=== PATIENT | female | born 1970 | race Two or more races ===

== ENCOUNTER 2021-03-02 11:26 | Emergency (ER) | payer MEDICAID, OTHER ==
[~2021-03-02] VITALS: Ht 162.6 cm; Wt 59.0 kg
[2021-03-02] MEDS ORDERED: cloNIDine HCL 0.1 MG TAB PO ONE (11:45)
[2021-03-02] MEDS ORDERED: traMADol HCL 50 MG TAB PO ONE (13:00)
[2021-03-02 13:36] VITALS: BP 169/79
== END 2021-03-02 13:31 | disposition home or self-care (01) ==
LOC: ER 11:26
DX: S40.012A Contusion of left shoulder, initial encounter (principal); S50.02XA Contusion of left elbow, initial encounter; F17.210 Nicotine dependence, cigarettes, uncomplicated; W19.XXXA Unspecified fall, initial encounter; Y93.89 Activity, other specified; Y92.89 Other specified places as the place of occurrence of the external cause; Y99.8 Other external cause status
CPT/HCPCS: 73030; 73070